=== PATIENT | female | born 1940 ===

== ENCOUNTER 2017-12-03 12:07 | Outpatient (CLI) | payer OTHER ==
--- NOTE | 2017-12-03 13:26 | US ---
EXAM: Bilateral carotid artery Doppler History: dizziness. bilateral carotid bruits Technique: Multiple sonographic images through the bilateral internal carotid arteries were obtained . Color duplex Doppler was used to interrogate vascular flow. Findings: The right ICA peak systolic velocity is within normal limits measuring 120 cm/sec. The right ICA/cca PSV ratio is normal 1.9. The right vertebral artery is patent and demonstrates antegrade flow. Rubalcava scale images demonstrate mild plaque buildup within the right internal carotid artery. The left ICA peak systolic velocity is within normal limits measuring 120 cm/sec. The left ICA/cca P SV ratio is normal at 1.2. The left vertebral artery is patent and demonstrates antegrade flow. Gra y scale images demonstrate mild plaque buildup within the left internal carotid artery. Impression: No significant hemodynamic stenosis of the bilateral internal carotid arteries.
== END 2017-12-03 12:08 | disposition home or self-care (01) ==
LOC: RAD 12:07
PROVIDERS: ATTEND Family Medicine
DX: R09.89 Other specified symptoms and signs involving the circulatory and respiratory systems (principal)

== ENCOUNTER 2017-12-11 06:40 | Outpatient (CLI) ==
--- NOTE | 2017-12-14 09:46 | ECHO2D ---
Date of Exam: 12/11/17 Ordering Physician: DR. YEVGENIY OGDEN Room #: OP Reason for Echo: HEART MURMUR, HYPERTENSION M-Mode Normal Adult Results LV Dimensions Normal Adult Results AoV Opening excursions >1.6 >1.6 LVEDD-base- 3.5-5.8 3.9 Ao root dimensions 2.0-3.7 2.8 LVESD-base- 3.1-4.6 L. Atrium dimensions 1.9-3.8 3.9 Post. Wall thickness 0.8-1.1 1.0 IV septum (thickness) 0.7-1.2 1.0 Post. Wall excursion 0.72-1.3 NORMAL Septal motion NORMAL Systolic motion R. Ventricular cavity 1.5-2.0 NORMAL LVEF 60% 61% Paradoxical septal wall motion NORMAL 2-D : CALCIFIC AORTIC VALVES--NO STENOSIS, OTHER VALVES ARE NORMAL, NORMAL LEFT VENTRICLE SIZE AND LEFT ATRIAL SIZE, NORMAL LEFT VENTRICULAR CONTRACTILITY, NO EFFUSION, NO THROMBUS M-MODE: MV: NORMAL AV: CALCIFIC AORTIC VALVES, NO STENOSIS TV: NORMAL PV: CHAMBER SIZE: NORMAL WALL MOTION: NORMAL PERICARDIUM: NORMAL INTERPRETATION: 1. CALCIFIC AORTIC VALVES, NO STENOSIS 2. NORMAL LEFT VENTRICULAR CONTRACTILITY 3. NORMAL LEFT VENTRICLE SIZE MTDD
== END 2017-12-11 06:41 | disposition home or self-care (01) ==
LOC: CAR 06:40
PROVIDERS: ATTEND Family Medicine
DX: R01.1 Cardiac murmur, unspecified (principal)

== ENCOUNTER 2017-12-25 12:14 | Outpatient (CLI) | payer OTHER | END 2017-12-25 12:15 | disposition home or self-care (01) | LOC: FCC-LAB 12:14 | PROVIDERS: ATTEND Family Medicine | DX: M81.0 Age-related osteoporosis without current pathological fracture (principal); N95.1 Menopausal and female climacteric states; I10 Essential (primary) hypertension; E04.9 Nontoxic goiter, unspecified; R01.1 Cardiac murmur, unspecified | CPT/HCPCS: 36415; 80053; 80061; 82306; 84439; 84443; 85025 ==